=== PATIENT | female | born 1955 | race Caucasian/White ===

== ENCOUNTER 2017-05-06 18:32 | Emergency (ER) | payer MEDICAID ==
[~2017-05-06] VITALS: Ht 165.1 cm; Wt 91.4 kg
[~2017-05-06 18:32] MED LIST: HYDR-882 PO; METH500T97 PO; TEMA15CA PO
[2017-05-06] MEDS ORDERED: ALBUTEROL SULFATE 2.5 MG/3 ML NPPB ONE (19:30)
[2017-05-06 19:34] LABS: HEMATOCRIT 41.3 % (34.6-47.8); HEMOGLOBIN 13.3 g/dL (11.7-16.4); WHITE BLOOD COUNT 15.5 x10^3/uL (3.4-10)
[2017-05-06 19:44] LABS: BLOOD UREA NITROGEN 19 mg/dL (7-18)
[2017-05-06 21:09] VITALS: BP 135/95
== END 2017-05-06 21:12 | disposition home or self-care (01) ==
LOC: ED 21:06
DX: J45.31 Mild persistent asthma with (acute) exacerbation (principal); I49.3 Ventricular premature depolarization
CPT/HCPCS: 36415; 71010; 80048; 82040; 85025; 93005; 94640; 99285; J7512; J7613

== ENCOUNTER 2017-09-05 17:30 | Inpatient (IN) | payer MEDICAID ==
[~2017-09-05] VITALS: Ht 165.1 cm; Wt 91.8 kg
[2017-09-05] MEDS ORDERED: SODIUM CHLORIDE 0.9% 1,000ML IVBOLUS ONE (19:00)
[2017-09-05] MEDS ORDERED: OMNIPAQUE 350 MG/ML, 100ML BOTTLE ONE (19:00)
[2017-09-05] MEDS ORDERED: ONDANSETRON 2MG/ML, 2ML IVPush ONE (19:00)
[2017-09-05] MEDS ORDERED: ONDANSETRON 2MG/ML, 2ML ONE (19:03)
[2017-09-05] MEDS ORDERED: MORPHINE SULFATE 4 MG/ML, 1ML ONE ×2 (19:04→21:04)
[2017-09-05] MEDS: MORPHINE SULFATE 4 MG/ML, 1ML IVPush PRN ×2 (19:08→21:06)
[2017-09-05 19:20] LABS: BASOPHILS # (AUTO) 0.05 x10^3/uL (0-0.1); BASOPHILS % (AUTO) 0 % (0-1); EOSINOPHILS % (AUTO) 1 % (1-7); LYMPHOCYTES # (AUTO) 1.96 x10^3/uL (1-3.4); LYMPHOCYTES % (AUTO) 12 % (22-44); MD NO; MEAN CORPUSCULAR HEMOGLOBIN 27.8 pg (27.0-34.8); MEAN CORPUSCULAR HGB CONC 33.2 g/dL (32.4-35.8); MEAN CORPUSCULAR VOLUME 83.9 fL (80-100); MEAN PLATELET VOLUME 9.6 fL (7.4-10.4); MONOCYTES # (AUTO) 1.22 x10^3/uL (0.2-0.8); MONOCYTES % (AUTO) 8 % (2-9); NEUTROPHILS # (AUTO) 12.46 x10^3/uL (1.8-6.8); NEUTROPHILS % (AUTO) 78 % (42-75); PLATELET COUNT 312 x10^3/uL (130-400); RED BLOOD COUNT 4.95 x10^6/uL (3.82-5.3); RED CELL DISTRIBUTION WIDTH 15.8 % (9.6-15.2)
[2017-09-05 19:21] LABS: CULTURE INDICATED? YES; MICROSCOPIC INDICATED
[2017-09-05 19:31] LABS: ALANINE AMINOTRANSFERASE 55 U/L (12-78); ALBUMIN 3.2 g/dL (3.4-5.0); ANION GAP 7 mmol/L (5-15); CALCIUM 8.4 mg/dL (8.5-10.1); CHLORIDE 104 mmol/L (98-107); CREATININE 0.71 mg/dL (0.55-1.02)
[2017-09-05 19:35] LABS: ALKALINE PHOSPHATASE 133 U/L (45-117); BILIRUBIN,TOTAL 0.5 mg/dL (0.2-1.0); TOTAL PROTEIN 8.1 g/dL (6.4-8.2); TROPONIN I < 0.015 ng/mL (0.000-0.045)
[2017-09-05] MEDS ORDERED: METRONIDAZOLE PMX 500MG/100ML 100 ML IV ONE (21:30)
[2017-09-05] MEDS ORDERED: CIPROFLOXACIN/PMX 400MG/200ML 200 ML IV ONE (21:30)
[2017-09-05] MEDS ORDERED: CIPROFLOXACIN/PMX 400MG/200ML 200 ML ONE (21:34)
[2017-09-05] MEDS ORDERED: MORPHINE SULFATE 4 MG/ML, 1ML IVPush PRN (22:00)
[2017-09-05] MEDS ORDERED: SODIUM CHLORIDE 0.9% 1,000 ML IV ONE (22:00)
[2017-09-05] MEDS ORDERED: ONDANSETRON 2MG/ML, 2ML IVPush PRN ×2 (22:00→23:00)
[2017-09-05] MEDS ORDERED: BISACODYL 10 MG SUPP PR PRN (23:00)
[2017-09-05] MEDS ORDERED: hydrALAzine 20 MG/ML, 1ML IVPush PRN (23:00)
[2017-09-05] MEDS ORDERED: KETOROLAC 30 MG/1 ML IM PRN (23:00)
[2017-09-05 23:30] VITALS: BP 116/73
[2017-09-05] MEDS: SODIUM CHLORIDE 0.9% 1,000 ML IV SCH (23:46)
[2017-09-05] MEDS: morphine SULFATE 10 MG/ML, 1ML IVPush PRN (23:56)
[2017-09-05] MEDS: METRONIDAZOLE PMX 500MG/100ML 100 ML IV SCH (23:56)
[2017-09-06] VITALS: BP 116/73
[2017-09-06] MEDS: morphine SULFATE 10 MG/ML, 1ML IVPush PRN ×4 (04:55→21:36)
[2017-09-06 04:57] VITALS: BP 115/74
[2017-09-06 05:50] LABS: CHLORIDE 107 mmol/L (98-107)
[2017-09-06 05:53] LABS: BASOPHILS # (AUTO) 0.07 x10^3/uL (0-0.1); BASOPHILS % (AUTO) 1 % (0-1); EOSINOPHILS # (AUTO) 0.24 x10^3/uL (0-0.4); EOSINOPHILS % (AUTO) 2 % (1-7); LYMPHOCYTES # (AUTO) 2.68 x10^3/uL (1-3.4); LYMPHOCYTES % (AUTO) 21 % (22-44); MD NO; MEAN CORPUSCULAR HEMOGLOBIN 27.8 pg (27.0-34.8); MEAN CORPUSCULAR HGB CONC 33.1 g/dL (32.4-35.8); MEAN CORPUSCULAR VOLUME 84.1 fL (80-100); MONOCYTES # (AUTO) 0.98 x10^3/uL (0.2-0.8); MONOCYTES % (AUTO) 8 % (2-9); NEUTROPHILS # (AUTO) 8.61 x10^3/uL (1.8-6.8); NEUTROPHILS % (AUTO) 69 % (42-75); PLATELET COUNT 265 x10^3/uL (130-400)
[2017-09-06] MEDS: METRONIDAZOLE PMX 500MG/100ML 100 ML IV SCH ×4 (06:00→23:50)
[2017-09-06 06:04] LABS: ANION GAP 7 mmol/L (5-15); CALCIUM 8.3 mg/dL (8.5-10.1); CREATININE 0.61 mg/dL (0.55-1.02)
[2017-09-06 07:48] VITALS: BP 109/71
[2017-09-06] MEDS ORDERED: CEFTRIAXONE PMX 2GM/50ML 50 ML IV SCH (08:30)
[2017-09-06] MEDS: SODIUM CHLORIDE 0.9% 1,000 ML IV SCH ×2 (09:25→23:51)
[2017-09-06] MEDS: CEFTRIAXONE 2 GM in DEXTROSE 5% 50 ML IV SCH (09:26)
[2017-09-06] MEDS: LACTOBACILLUS 1GM/ PACKET PO SCH ×4 (09:26→20:36)
[2017-09-06] MEDS ORDERED: CIPROFLOXACIN/PMX 400MG/200ML 200 ML IV SCH (10:00)
[2017-09-06] MEDS: PANTOPRAZOLE 40 MG IV IVPush SCH ×2 (12:00→23:50)
[2017-09-06 14:34] VITALS: BP 111/72
[2017-09-06 19:16] VITALS: BP 112/73
[2017-09-06] MEDS: TEMAZEPAM 15 MG CAPSULE PO PRN (21:36)
[2017-09-07 00:25] VITALS: BP 116/71
[2017-09-07] MEDS ORDERED: CEFTRIAXONE 2 GM in DEXTROSE 5% 50 ML IV SCH (05:00)
[2017-09-07 05:23] LABS: BASOPHILS # (AUTO) 0.06 x10^3/uL (0-0.1); BASOPHILS % (AUTO) 1 % (0-1); EOSINOPHILS # (AUTO) 0.35 x10^3/uL (0-0.4); EOSINOPHILS % (AUTO) 4 % (1-7); LYMPHOCYTES % (AUTO) 27 % (22-44); MD NO; MEAN CORPUSCULAR HEMOGLOBIN 27.8 pg (27.0-34.8); MEAN CORPUSCULAR HGB CONC 33.1 g/dL (32.4-35.8); MEAN PLATELET VOLUME 9.5 fL (7.4-10.4); MONOCYTES # (AUTO) 0.67 x10^3/uL (0.2-0.8); MONOCYTES % (AUTO) 7 % (2-9); NEUTROPHILS # (AUTO) 6.41 x10^3/uL (1.8-6.8); NEUTROPHILS % (AUTO) 62 % (42-75); PLATELET COUNT 284 x10^3/uL (130-400); RED BLOOD COUNT 4.39 x10^6/uL (3.82-5.3); RED CELL DISTRIBUTION WIDTH 15.5 % (9.6-15.2)
[2017-09-07 05:28] LABS: ALBUMIN 2.7 g/dL (3.4-5.0); ANION GAP 8 mmol/L (5-15); CALCIUM 8.6 mg/dL (8.5-10.1); CHLORIDE 107 mmol/L (98-107)
[2017-09-07 05:30] LABS: CREATININE 0.67 mg/dL (0.55-1.02)
[2017-09-07] MEDS: METRONIDAZOLE PMX 500MG/100ML 100 ML IV SCH ×3 (06:15→18:24)
[2017-09-07] MEDS: LACTOBACILLUS 1GM/ PACKET PO SCH ×4 (06:16→20:47)
[2017-09-07 07:41] VITALS: BP 126/63
[2017-09-07] MEDS: CEFTRIAXONE 2 GM in DEXTROSE 5% 50 ML IV SCH (09:02)
[2017-09-07] MEDS: CHOLECALCIFEROL 1,000 UNIT TABLET PO SCH (09:02)
[2017-09-07] MEDS: PANTOPRAZOLE 40 MG IV IVPush SCH (12:44)
[2017-09-07] MEDS: SODIUM CHLORIDE 0.9% 1,000 ML IV SCH ×2 (12:44→22:44)
[2017-09-07 14:47] VITALS: BP 101/58
[2017-09-07 14:48] VITALS: BP_SYST 101; BP_SYST 135; BP_DIAS 58; BP_DIAS 77
[2017-09-07] MEDS: PANTOPROZOLE 40MG TABLET PO SCH (17:29)
[2017-09-07 19:13] VITALS: BP 132/87
[2017-09-07] MEDS: morphine SULFATE 10 MG/ML, 1ML IVPush PRN (20:47)
[2017-09-07] MEDS: TEMAZEPAM 15 MG CAPSULE PO PRN (22:44)
[2017-09-08] MEDS: METRONIDAZOLE PMX 500MG/100ML 100 ML IV SCH ×2 (00:24→06:11)
[2017-09-08 01:03] VITALS: BP 99/65
[2017-09-08] MEDS ORDERED: CEFTRIAXONE 2 GM in DEXTROSE 5% 50 ML IV SCH (05:00)
[2017-09-08 05:20] LABS: BASOPHILS # (AUTO) 0.06 x10^3/uL (0-0.1); BASOPHILS % (AUTO) 1 % (0-1); EOSINOPHILS # (AUTO) 0.38 x10^3/uL (0-0.4); EOSINOPHILS % (AUTO) 4 % (1-7); LYMPHOCYTES # (AUTO) 1.97 x10^3/uL (1-3.4); LYMPHOCYTES % (AUTO) 23 % (22-44); MD NO; MEAN CORPUSCULAR HEMOGLOBIN 27.5 pg (27.0-34.8); MEAN CORPUSCULAR HGB CONC 32.9 g/dL (32.4-35.8); MEAN CORPUSCULAR VOLUME 83.7 fL (80-100); MEAN PLATELET VOLUME 9.3 fL (7.4-10.4); MONOCYTES # (AUTO) 0.56 x10^3/uL (0.2-0.8); MONOCYTES % (AUTO) 6 % (2-9); NEUTROPHILS # (AUTO) 5.77 x10^3/uL (1.8-6.8); NEUTROPHILS % (AUTO) 66 % (42-75); PLATELET COUNT 281 x10^3/uL (130-400); RED BLOOD COUNT 4.18 x10^6/uL (3.82-5.3); RED CELL DISTRIBUTION WIDTH 15.5 % (9.6-15.2)
[2017-09-08 05:27] LABS: ALBUMIN 2.5 g/dL (3.4-5.0); ANION GAP 4 mmol/L (5-15); CALCIUM 8.2 mg/dL (8.5-10.1); CHLORIDE 111 mmol/L (98-107); CREATININE 0.59 mg/dL (0.55-1.02)
[2017-09-08] MEDS: LACTOBACILLUS 1GM/ PACKET PO SCH (06:11)
[2017-09-08] MEDS ORDERED: METR500T PO (07:30)
[2017-09-08] MEDS ORDERED: CIPR500T87 PO (07:30)
[2017-09-08] MEDS ORDERED: PANT40TA5 PO (07:30)
[2017-09-08] MEDS ORDERED: CHOL10003 PO (07:30)
[2017-09-08 07:51] VITALS: BP 118/80
[2017-09-08] MEDS: SODIUM CHLORIDE 0.9% 1,000 ML IV SCH (08:00)
[2017-09-08] MEDS: PANTOPROZOLE 40MG TABLET PO SCH (08:12)
[2017-09-08] MEDS: CHOLECALCIFEROL 1,000 UNIT TABLET PO SCH (08:12)
== END 2017-09-08 09:51 | disposition home or self-care (01) | DRG 391 ==
LOC: ED 21:13 → EDIP 22:00 → 4EST 23:06 → DCLOUNGE 09-08 09:34
PROVIDERS: ADMIT Internal Medicine; ATTEND Internal Medicine
DX: K57.32 Diverticulitis of large intestine without perforation or abscess without bleeding (principal); E43 Unspecified severe protein-calorie malnutrition; E55.9 Vitamin D deficiency, unspecified; E66.9 Obesity, unspecified; E78.5 Hyperlipidemia, unspecified; K21.9 Gastro-esophageal reflux disease without esophagitis; K44.9 Diaphragmatic hernia without obstruction or gangrene; Z82.3 Family history of stroke; Z90.710 Acquired absence of both cervix and uterus; D72.829 Elevated white blood cell count, unspecified; Z68.33 Body mass index [BMI] 33.0-33.9, adult
CPT/HCPCS: 36415; 74177; 80048; 80053; 81001; 82040; 82306; 83690; 83735; 84100; 84484; 85025; 87040; 87086; 93005; 96361; 96374; 96375; 96376; J0696; J0744; J2405; Q9967; C9113; J2270; J7030

== ENCOUNTER 2018-03-26 02:41 | Emergency (ER) | payer MEDICAID, OTHER ==
[~2018-03-26] VITALS: Ht 165.1 cm; Wt 91.0 kg
[~2018-03-26 02:41] MED LIST changes: +CHOL10003 PO; +CIPR500T87 PO; +HYDR-3653 PO; -HYDR-882 PO; +METR500T PO; +PANT40TA5 PO
[2018-03-26] MEDS ORDERED: KETOROLAC 30 MG/1 ML ONE (03:15)
[2018-03-26] MEDS ORDERED: KETOROLAC 30 MG/1 ML IM ONE (03:30)
[2018-03-26] MEDS ORDERED: LIDOCAINE-MPF 1%, 5ML ONE (03:51)
[2018-03-26 04:00] VITALS: BP 142/78
[2018-03-26] MEDS ORDERED: TRIAMCINOLONE ACETONIDE 40 MG/ML, 1ML MC ONE (04:00)
[2018-03-26] MEDS ORDERED: LIDOCAINE 1%, 2ML INFIL ONE (04:00)
== END 2018-03-26 04:44 | disposition home or self-care (01) ==
LOC: ED 03:49
DX: M25.512 Pain in left shoulder (principal); Z87.891 Personal history of nicotine dependence
CPT/HCPCS: 20610; 73030; 93005; 96372; 99284; J1885

== ENCOUNTER 2019-07-20 06:00 | Emergency (ER) | payer OTHER ==
[~2019-07-20] VITALS: Ht 165.1 cm; Wt 83.7 kg
[2019-07-20] MEDS ORDERED: SODIUM CHLORIDE FLUSH 10ML SYR IVF ONE (07:00)
[2019-07-20] MEDS ORDERED: SODIUM CHLORIDE 0.9% 1,000ML IVBOLUS ONE (07:00)
[2019-07-20] MEDS ORDERED: ONDANSETRON 2MG/ML, 2ML IVPush ONE (07:00)
[2019-07-20 07:01] LABS: BASOPHILS % (AUTO) 0 % (0-1); EOSINOPHILS # (AUTO) 0.27 x10^3/uL (0-0.4); EOSINOPHILS % (AUTO) 2 % (1-7); LYMPHOCYTES # (AUTO) 1.89 x10^3/uL (1-3.4); LYMPHOCYTES % (AUTO) 14 % (22-44); MD NO; MEAN CORPUSCULAR HEMOGLOBIN 28.7 pg (27.0-34.8); MEAN PLATELET VOLUME 9.7 fL (7.4-10.4); MONOCYTES # (AUTO) 0.72 x10^3/uL (0.2-0.8); MONOCYTES % (AUTO) 5 % (2-9); NEUTROPHILS # (AUTO) 10.61 x10^3/uL (1.8-6.8); NEUTROPHILS % (AUTO) 79 % (42-75); PLATELET COUNT 279 x10^3/uL (130-400); RED BLOOD COUNT 4.94 x10^6/uL (3.82-5.3); RED CELL DISTRIBUTION WIDTH 14.5 % (9.6-15.2)
--- NOTE | 2019-07-20 07:04 | NUR ---
CT PENDING CREATINE.
[2019-07-20 07:13] LABS: ALANINE AMINOTRANSFERASE 25 U/L (12-78); ALBUMIN 3.3 g/dL (3.4-5.0); ANION GAP 10 mmol/L (5-15); CALCIUM 8.8 mg/dL (8.5-10.1); CHLORIDE 107 mmol/L (98-107)
[2019-07-20 07:15] LABS: ALKALINE PHOSPHATASE 123 U/L (45-117); BILIRUBIN,TOTAL 0.6 mg/dL (0.2-1.0); TOTAL PROTEIN 7.9 g/dL (6.4-8.2)
[2019-07-20 07:20] LABS: MICROSCOPIC NOT IND
[2019-07-20] MEDS ORDERED: ONDANSETRON 2MG/ML, 2ML ONE (07:25)
[2019-07-20] MEDS ORDERED: MORPHINE SULFATE 4 MG/ML, 1ML ONE ×2 (07:26→08:28)
[2019-07-20 07:29] LABS: CULTURE INDICATED? NO
[2019-07-20] MEDS: MORPHINE SULFATE 4 MG/ML, 1ML IVPush PRN ×2 (07:34→08:34)
--- NOTE | 2019-07-20 07:35 | NUR ---
PIV STARTED AND PATIENT MEDICATED PER AUG. PT TO CT AT THIS TIME.
[2019-07-20 07:51] VITALS: BP 161/90
[2019-07-20] MEDS ORDERED: ASCO10004 PO (07:53)
[2019-07-20] MEDS ORDERED: OMEP40CA42 PO (07:54)
[2019-07-20] MEDS ORDERED: LACT1CAP43 PO (07:55)
[2019-07-20] MEDS ORDERED: OMNIPAQUE 350 MG/ML, 100ML BOTTLE ONE (07:59)
--- NOTE | 2019-07-20 08:46 | NUR ---
SB[facility] HAND-OFF REPORT GIVEN TO JESSICA ARMSTRONG.
--- NOTE | 2019-07-20 10:06 | NUR ---
Patient given discharge instructions and they have confirmed that they understand the instructions. Patient ambulatory with steady gait.
== END 2019-07-20 10:08 | disposition home or self-care (01) ==
LOC: ED 06:20
DX: K57.32 Diverticulitis of large intestine without perforation or abscess without bleeding (principal); R10.32 Left lower quadrant pain; Z90.710 Acquired absence of both cervix and uterus
CPT/HCPCS: 36415; 71045; 74177; 80053; 81003; 83690; 85025; 93005; 96374; 96375; 96376; 99284; J2270; J2405; J7030; Q9967

== ENCOUNTER 2019-08-23 12:39 | Observation (INO) | payer OTHER ==
[~2019-08-23] VITALS: Ht 165.1 cm; Wt 86.0 kg
[~2019-08-23 12:39] MED LIST changes: +ASCO10004 PO; +LACT1CAP43 PO; +OMEP40CA42 PO
[2019-08-23] MEDS ORDERED: SODIUM CHLORIDE 0.9% 1,000 ML IV ONE (12:46)
[2019-08-23] MEDS ORDERED: SODIUM CHLORIDE 0.9% 1,000ML IVBOLUS ONE (13:00)
[2019-08-23 13:16] LABS: BASOPHILS # (AUTO) 0.06 x10^3/uL (0-0.1); BASOPHILS % (AUTO) 1 % (0-1); EOSINOPHILS % (AUTO) 4 % (1-7); LYMPHOCYTES % (AUTO) 20 % (22-44); MD NO; MEAN CORPUSCULAR HEMOGLOBIN 28.6 pg (27.0-34.8); MEAN CORPUSCULAR HGB CONC 32.6 g/dL (32.4-35.8); MEAN CORPUSCULAR VOLUME 87.8 fL (80-100); MEAN PLATELET VOLUME 9.6 fL (7.4-10.4); MONOCYTES # (AUTO) 0.64 x10^3/uL (0.2-0.8); MONOCYTES % (AUTO) 6 % (2-9); NEUTROPHILS # (AUTO) 8.07 x10^3/uL (1.8-6.8); NEUTROPHILS % (AUTO) 70 % (42-75); PLATELET COUNT 304 x10^3/uL (130-400); RED BLOOD COUNT 4.45 x10^6/uL (3.82-5.3); RED CELL DISTRIBUTION WIDTH 15.3 % (9.6-15.2)
--- NOTE | 2019-08-23 13:17 | NUR ---
Pt here for drug overdose, pt reported taking 12 tinazidine and 12 tenazapam. Pt was a/ox4 on scene but is not oriented here. Per ems report pt called friend and said she was going to take her life who called her son and then he called ems. Pt has pin point pupils and only responds to pain. Pt is still maintaing her airway without interventions. Room air sat remains at 98% o2. Pt on pads as she is bradycardic, pt also connected to monitors. Awaiting further orders.
[2019-08-23 13:24] LABS: ALBUMIN 2.6 g/dL (3.4-5.0); ANION GAP 7 mmol/L (5-15); CALCIUM 8.3 mg/dL (8.5-10.1); CHLORIDE 109 mmol/L (98-107)
[2019-08-23 13:26] LABS: SALICYLATE LEVEL < 1.7 mg/dL (2.8-20.0)
[2019-08-23 13:27] LABS: ALANINE AMINOTRANSFERASE 26 U/L (12-78); ALKALINE PHOSPHATASE 101 U/L (45-117); BILIRUBIN,TOTAL 0.5 mg/dL (0.2-1.0); TOTAL PROTEIN 6.6 g/dL (6.4-8.2)
--- NOTE | 2019-08-23 14:12 | NUR ---
Pt resting in bed, gag reflex test woke up patient, pt able to answer some questions. family at bedside and answered questions for them. Warm blanket provided.
--- NOTE | 2019-08-23 14:24 | NUR ---
Hospital bed requested.
--- NOTE | 2019-08-23 14:39 | NUR ---
Pillow provided for patient
[2019-08-23] MEDS ORDERED: SODIUM CHLORIDE FLUSH 10ML SYR IVF PRN (15:30)
[2019-08-23] MEDS ORDERED: DOCUSATE 100 MG CAPSULE PO PRN (16:00)
[2019-08-23] MEDS ORDERED: ONDANSETRON 2MG/ML, 2ML IVPush PRN (16:00)
[2019-08-23] MEDS ORDERED: ACETAMINOPHEN 325 MG TABLET PO PRN (16:00)
[2019-08-23] MEDS ORDERED: ENOXAPARIN 40 MG/0.4 ML ONE (16:40)
[2019-08-23] MEDS: ENOXAPARIN 40 MG/0.4 ML SQ SCH (16:41)
[2019-08-23] MEDS: SODIUM CHLORIDE 0.9% 1,000 ML IV SCH (16:41)
--- NOTE | 2019-08-23 16:42 | NUR ---
pt medicated per emar.
[2019-08-23 18:26] VITALS: BP 110/62
[2019-08-23] MEDS: IBUPROFEN 600 MG TABLET PO PRN (19:06)
[2019-08-23 22:51] LABS: AMPHETAMINE SCREEN, URINE Negative (Negative); BARBITURATE SCREEN, URINE Negative (Negative); BENZODIAZEPINE SCREEN, URINE Positive (Negative); CANNABINOID SCREEN, URINE Negative (Negative); COCAINE SCREEN, URINE Negative (Negative); METHADONE SCREEN, URINE Negative (Negative); OPIATE SCREEN, URINE Negative (Negative)
[2019-08-24 00:05] VITALS: BP 128/71
[2019-08-24] MEDS: SODIUM CHLORIDE 0.9% 1,000 ML IV SCH ×2 (00:23→08:53)
[2019-08-24] MEDS: IBUPROFEN 600 MG TABLET PO PRN (04:57)
[2019-08-24 05:24] LABS: ANION GAP 7 mmol/L (5-15); CALCIUM 8.4 mg/dL (8.5-10.1); CHLORIDE 110 mmol/L (98-107)
[2019-08-24 05:26] LABS: BASOPHILS # (AUTO) 0.09 x10^3/uL (0-0.1); BASOPHILS % (AUTO) 1 % (0-1); EOSINOPHILS # (AUTO) 0.29 x10^3/uL (0-0.4); EOSINOPHILS % (AUTO) 3 % (1-7); LYMPHOCYTES # (AUTO) 2.14 x10^3/uL (1-3.4); LYMPHOCYTES % (AUTO) 19 % (22-44); MD NO; MEAN CORPUSCULAR HEMOGLOBIN 28.5 pg (27.0-34.8); MEAN CORPUSCULAR HGB CONC 32.7 g/dL (32.4-35.8); MEAN CORPUSCULAR VOLUME 87.3 fL (80-100); MEAN PLATELET VOLUME 9.9 fL (7.4-10.4); MONOCYTES # (AUTO) 0.53 x10^3/uL (0.2-0.8); MONOCYTES % (AUTO) 5 % (2-9); NEUTROPHILS # (AUTO) 7.98 x10^3/uL (1.8-6.8); NEUTROPHILS % (AUTO) 72 % (42-75); PLATELET COUNT 266 x10^3/uL (130-400); RED BLOOD COUNT 4.83 x10^6/uL (3.82-5.3); RED CELL DISTRIBUTION WIDTH 15.4 % (9.6-15.2)
[2019-08-24] MEDS ORDERED: PANTOPRAZOLE 40 MG IV IVPush SCH (07:30)
[2019-08-24 08:15] VITALS: BP 149/90
[2019-08-24 13:07] VITALS: BP 166/99
[2019-08-24] MEDS ORDERED: DULOXETINE 30 MG CAPSULE.DR PO ONE (15:30)
[2019-08-24] MEDS: ENOXAPARIN 40 MG/0.4 ML SQ SCH (15:40)
[2019-08-24] MEDS ORDERED: ACET325T26 PO (15:46)
[2019-08-24] MEDS ORDERED: DULO30CA2 PO (15:46)
[2019-08-24] MEDS ORDERED: IBUP-1222 PO (15:46)
== END 2019-08-24 17:43 | disposition home or self-care (01) ==
LOC: ED 14:30 → EDIP 15:04 → INTOOBSV 15:04 → 5SO 17:38
PROVIDERS: ADMIT Internal Medicine; ATTEND Internal Medicine
DX: T42.8X2A Poisoning by antiparkinsonism drugs and other central muscle-tone depressants, intentional self-harm, initial encounter (principal); T42.4X2A Poisoning by benzodiazepines, intentional self-harm, initial encounter; G92 Toxic encephalopathy; D72.829 Elevated white blood cell count, unspecified; I10 Essential (primary) hypertension; K21.9 Gastro-esophageal reflux disease without esophagitis; M06.9 Rheumatoid arthritis, unspecified; G89.29 Other chronic pain; I65.21 Occlusion and stenosis of right carotid artery; R73.9 Hyperglycemia, unspecified; I45.5 Other specified heart block; F32.9 Major depressive disorder, single episode, unspecified; Z90.710 Acquired absence of both cervix and uterus; Z79.899 Other long term (current) drug therapy; Z87.19 Personal history of other diseases of the digestive system
CPT/HCPCS: 36415; 71045; 80048; 80053; 80307; 84443; 85025; 93005; 96372; 96374; 99291; C9113; G0378; J7030; J1650

== ENCOUNTER 2020-04-21 07:31 | Emergency (ER) | payer BC, MEDICAID, OTHER ==
[~2020-04-21] VITALS: Ht 165.1 cm; Wt 83.0 kg
[~2020-04-21 07:31] MED LIST changes: +ACET325T26 PO; +ASCO100018 PO; -ASCO10004 PO; +DULO30CA2 PO; +IBUP-1222 PO; -PANT40TA5 PO; +PANT40TA6 PO
[2020-04-21 07:34] VITALS: BP 151/100
--- NOTE | 2020-04-21 08:19 | NUR ---
PT C/O RASH TO RIGHT SIDE OF FACE THAT STARTED THURSDAY. TO THE PATIENT IT LOOKED LIKE A BUG BITE THAT STARTED SMALL AND COUNTINUED TO GET BIGGER. PT STATES IT STARTED ITCHING REALLY BAD TODAY. PT STATED IT STARTED HAVING PUS COME OUT SINCE YESTERDAY. PT HAS A HX OF CELLULITIS AND STATES THIS FEELS SIMILAR.
== END 2020-04-21 08:35 | disposition home or self-care (01) ==
LOC: ED 07:59
DX: B02.33 Zoster keratitis (principal); I10 Essential (primary) hypertension; Z90.710 Acquired absence of both cervix and uterus
CPT/HCPCS: 99283

== ENCOUNTER 2020-04-22 10:51 | Emergency (ER) | payer MEDICAID ==
[~2020-04-22] VITALS: Ht 165.1 cm; Wt 83.3 kg
[2020-04-22 10:53] VITALS: BP 122/68
[2020-04-22] MEDS ORDERED: PIPERACILLIN/TAZO/PMX 3.375GM 50 ML ONE (11:19)
--- NOTE | 2020-04-22 11:28 | NUR ---
PIV PLACED. ABX RUNNING PER AUG. PROVIDER STATES NO LABS AT THIS TIME.
[2020-04-22] MEDS ORDERED: HYDROcodone/APAP 5/325 TABLET ONE (11:29)
[2020-04-22] MEDS ORDERED: HYDROcodone/APAP 5/325 TABLET PO ONE (11:30)
[2020-04-22] MEDS ORDERED: SODIUM CHLORIDE FLUSH 10ML SYR IVF ONE (11:30)
[2020-04-22] MEDS ORDERED: PIPERACILLIN/TAZO/PMX 3.375GM 50 ML IV ONE (11:30)
--- NOTE | 2020-04-22 11:48 | NUR ---
IV ABX COMPLETE. PT STATES PAIN IS BETTER.
== END 2020-04-22 12:15 | disposition home or self-care (01) ==
LOC: ED 12:00
DX: L03.211 Cellulitis of face (principal); L01.01 Non-bullous impetigo; I10 Essential (primary) hypertension; Z90.710 Acquired absence of both cervix and uterus
CPT/HCPCS: 96365; 99284; J2543

== ENCOUNTER 2020-04-23 11:04 | Inpatient (IN) | payer MEDICAID ==
[~2020-04-23] VITALS: Ht 165.1 cm; Wt 86.7 kg
--- NOTE | 2020-04-23 13:10 | NUR ---
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
[2020-04-23] MEDS ORDERED: SODIUM CHLORIDE 0.9% 1,000 ML IV ONE (14:30)
[2020-04-23] MEDS ORDERED: PIPERACILLIN/TAZO/PMX 3.375GM 50 ML IVPB ONE (14:30)
[2020-04-23] MEDS ORDERED: ONDANSETRON 2MG/ML, 2ML IVPush ONE (14:30)
[2020-04-23] MEDS ORDERED: SODIUM CHLORIDE FLUSH 10ML SYR IVF ONE (14:30)
[2020-04-23] MEDS ORDERED: HYDROmorphone 1 MG/ML, 1ML INJ IVPush PRN (14:30)
[2020-04-23] MEDS ORDERED: PIPERACILLIN/TAZO/PMX 3.375GM 50 ML ONE (14:43)
[2020-04-23] MEDS ORDERED: HYDROmorphone 1 MG/ML, 1ML INJ ONE (14:44)
[2020-04-23] MEDS ORDERED: ONDANSETRON 2MG/ML, 2ML ONE (14:44)
--- NOTE | 2020-04-23 14:45 | NUR ---
LATE ENTRY: PT CAME IN CO OF REDNESS, PAIN, AND SWELLING TO RIGHT SIDE OF FACE. WAS SEEN THE PREVIOUS 2 DAYS FOR SAME. BUT "ITS GETTING WORSE AND ITS SO PAINFUL". HER FACE IS DRY AND AND A SCAB ON IT THAT IS WEEPING. PT RESTING IN [facility]. WATER PROVIDED. LABS DRAWN
[2020-04-23 15:01] LABS: BASOPHILS % (AUTO) 1 % (0-1); EOSINOPHILS % (AUTO) 4 % (1-7); LYMPHOCYTES % (AUTO) 23 % (22-44); MEAN CORPUSCULAR HEMOGLOBIN 30.2 pg (27.0-34.8); MEAN CORPUSCULAR HGB CONC 33.1 g/dL (32.4-35.8); MEAN PLATELET VOLUME 9.6 fL (7.4-10.4); MONOCYTES % (AUTO) 6 % (2-9); NEUTROPHILS % (AUTO) 66 % (42-75); PLATELET COUNT 323 x10^3/uL (130-400); RED CELL DISTRIBUTION WIDTH 13.3 % (9.6-15.2)
[2020-04-23 15:06] LABS: MD NO
--- NOTE | 2020-04-23 15:06 | NUR ---
BLOOD CULTURES DRAWN PRIOR TO ADM OF ABX
[2020-04-23 15:08] LABS: ALBUMIN 3.6 g/dL (3.4-5.0); ANION GAP 5 mmol/L (5-15); CALCIUM 8.9 mg/dL (8.5-10.1); CHLORIDE 107 mmol/L (98-107); CREATININE 0.86 mg/dL (0.55-1.02)
[2020-04-23] MEDS ORDERED: SODIUM CHLORIDE FLUSH 10ML SYR IVF PRN (16:00)
[2020-04-23] MEDS ORDERED: ONDANSETRON ODT 4 MG PO PRN (16:00)
[2020-04-23] MEDS ORDERED: ONDANSETRON 2MG/ML, 2ML IVPush PRN (16:00)
[2020-04-23] MEDS: ENOXAPARIN 40 MG/0.4 ML SQ SCH (16:00)
[2020-04-23] MEDS ORDERED: VANCOMYCIN PER PHARMACY MC PRN (16:00)
[2020-04-23] MEDS: AMPICILLIN/SULBACTAM 3 GM in SODIUM CHLORIDE 0.9% 100 ML IV SCH ×2 (17:18→23:02)
[2020-04-23] MEDS ORDERED: VANCOMYCIN 2,000 MG in SODIUM CHLORIDE 0.9% 500 ML IV ONE (19:30)
[2020-04-23] MEDS ORDERED: PHARMACOKINETIC CONSULTATION MC ONE ×2 (19:30→21:30)
[2020-04-23] MEDS ORDERED: PHARMACOKINETIC MONITORING MC PRN ×2 (19:30→21:30)
[2020-04-23 20:09] VITALS: BP 103/68
[2020-04-23] MEDS: SODIUM CHLORIDE 0.9% 1,000 ML IV SCH (20:27)
[2020-04-23] MEDS: MORPHINE SULFATE 4 MG/ML, 1ML IVPush PRN (20:54)
[2020-04-23] MEDS: ASCORBIC ACID 500 MG TABLET PO SCH (20:55)
[2020-04-23] MEDS: AQUAPHOR NATURAL HEALING OINT 50GM TP SCH (21:17)
[2020-04-23] MEDS: TEMAZEPAM 15 MG CAPSULE PO PRN (21:39)
[2020-04-24 01:16] VITALS: BP 112/74
[2020-04-24] MEDS: MORPHINE SULFATE 4 MG/ML, 1ML IVPush PRN ×2 (03:37→08:58)
[2020-04-24] MEDS: AMPICILLIN/SULBACTAM 3 GM in SODIUM CHLORIDE 0.9% 100 ML IV SCH ×4 (05:03→23:21)
[2020-04-24] MEDS: OMEPRAZOLE 20 MG CAPSULE.DR PO SCH (05:03)
[2020-04-24 06:06] LABS: BASOPHILS % (AUTO) 1 % (0-1); EOSINOPHILS % (AUTO) 5 % (1-7); LYMPHOCYTES % (AUTO) 27 % (22-44); MEAN CORPUSCULAR HEMOGLOBIN 30.2 pg (27.0-34.8); MEAN CORPUSCULAR HGB CONC 32.6 g/dL (32.4-35.8); MEAN PLATELET VOLUME 9.4 fL (7.4-10.4); MONOCYTES % (AUTO) 8 % (2-9); NEUTROPHILS % (AUTO) 59 % (42-75); PLATELET COUNT 276 x10^3/uL (130-400); RED BLOOD COUNT 4.06 x10^6/uL (3.82-5.3); RED CELL DISTRIBUTION WIDTH 13.7 % (9.6-15.2)
[2020-04-24 06:15] LABS: CHLORIDE 110 mmol/L (98-107)
[2020-04-24 06:18] LABS: MD NO
[2020-04-24 06:30] LABS: ALANINE AMINOTRANSFERASE 22 U/L (12-78); ALBUMIN 2.8 g/dL (3.4-5.0); ALKALINE PHOSPHATASE 83 U/L (45-117); ANION GAP 3 mmol/L (5-15); BILIRUBIN,TOTAL 0.3 mg/dL (0.2-1.0); CALCIUM 8.2 mg/dL (8.5-10.1); CREATININE 0.73 mg/dL (0.55-1.02); TOTAL PROTEIN 6.2 g/dL (6.4-8.2)
[2020-04-24 08:56] VITALS: BP 108/64
[2020-04-24] MEDS: DULOXETINE 30 MG CAPSULE.DR PO SCH (08:57)
[2020-04-24] MEDS: AQUAPHOR NATURAL HEALING OINT 50GM TP SCH ×2 (08:58→19:34)
[2020-04-24] MEDS: VANCOMYCIN 1,600 MG in SODIUM CHLORIDE 0.9% 250 ML IV SCH ×2 (10:04→19:35)
[2020-04-24] MEDS ORDERED: DOCUSATE 100 MG CAPSULE PO PRN (13:30)
[2020-04-24] MEDS ORDERED: POLYETHYLENE GLYCOL 17 GM PACKET PO PRN (13:30)
[2020-04-24] MEDS: SODIUM CHLORIDE 0.9% 1,000 ML IV SCH (14:22)
[2020-04-24] MEDS: HYDROmorphone 1 MG/ML, 1ML INJ IV PRN ×2 (14:22→19:35)
[2020-04-24 14:34] VITALS: BP 117/79
[2020-04-24] MEDS: ENOXAPARIN 40 MG/0.4 ML SQ SCH (15:24)
[2020-04-24] MEDS: MUPIROCIN OINT 2%, 22GM TP SCH ×2 (17:08→19:34)
[2020-04-24 19:11] VITALS: BP 137/86
[2020-04-24] MEDS: ASCORBIC ACID 500 MG TABLET PO SCH (19:34)
[2020-04-24] MEDS: TEMAZEPAM 15 MG CAPSULE PO PRN (21:22)
[2020-04-25] MEDS: SODIUM CHLORIDE 0.9% 1,000 ML IV SCH ×2 (01:20→17:10)
[2020-04-25 01:37] VITALS: BP 109/59
[2020-04-25] MEDS: OMEPRAZOLE 20 MG CAPSULE.DR PO SCH (05:07)
[2020-04-25] MEDS: AMPICILLIN/SULBACTAM 3 GM in SODIUM CHLORIDE 0.9% 100 ML IV SCH ×4 (05:07→23:08)
[2020-04-25 06:30] VITALS: BP 150/86
[2020-04-25 06:32] VITALS: BP 146/90
[2020-04-25] MEDS: HYDROmorphone 1 MG/ML, 1ML INJ IV PRN ×3 (08:41→20:06)
[2020-04-25] MEDS: DULOXETINE 30 MG CAPSULE.DR PO SCH (08:41)
[2020-04-25] MEDS: VANCOMYCIN 1,600 MG in SODIUM CHLORIDE 0.9% 250 ML IV SCH (08:42)
[2020-04-25] MEDS: AQUAPHOR NATURAL HEALING OINT 50GM TP SCH ×2 (08:42→20:07)
[2020-04-25] MEDS: MUPIROCIN OINT 2%, 22GM TP SCH ×3 (08:45→20:07)
[2020-04-25 13:16] VITALS: BP 136/79
[2020-04-25] MEDS: ENOXAPARIN 40 MG/0.4 ML SQ SCH (15:18)
[2020-04-25] MEDS ORDERED: OXYcodone/APAP 5/325MG TABLET PO PRN (17:00)
[2020-04-25] MEDS: ASCORBIC ACID 500 MG TABLET PO SCH (20:06)
[2020-04-25 20:37] VITALS: BP 146/85
[2020-04-25] MEDS: TEMAZEPAM 15 MG CAPSULE PO PRN (21:59)
[2020-04-26 02:09] VITALS: BP 144/90
[2020-04-26] MEDS ORDERED: VANCOMYCIN 1,600 MG in SODIUM CHLORIDE 0.9% 250 ML IV SCH (03:00)
[2020-04-26] MEDS: AMPICILLIN/SULBACTAM 3 GM in SODIUM CHLORIDE 0.9% 100 ML IV SCH ×2 (05:23→11:35)
[2020-04-26] MEDS: OMEPRAZOLE 20 MG CAPSULE.DR PO SCH (05:23)
[2020-04-26 07:28] VITALS: BP 112/75
[2020-04-26] MEDS: MUPIROCIN OINT 2%, 22GM TP SCH (08:52)
[2020-04-26] MEDS: DULOXETINE 30 MG CAPSULE.DR PO SCH (08:53)
[2020-04-26] MEDS: AQUAPHOR NATURAL HEALING OINT 50GM TP SCH (08:53)
[2020-04-26] MEDS: SODIUM CHLORIDE 0.9% 1,000 ML IV SCH (08:55)
[2020-04-26] MEDS ORDERED: AMOX1TAB64 PO (13:13)
[2020-04-26] MEDS ORDERED: DOXY100T PO (13:13)
[2020-04-26] MEDS ORDERED: LACT1CAP35 PO (13:13)
[2020-04-26] MEDS ORDERED: FLUC200T PO (13:13)
[2020-04-26 13:23] VITALS: BP 152/93
== END 2020-04-26 15:07 | disposition home or self-care (01) | DRG 603 ==
LOC: ED 16:11 → EDIP 18:07 → 3N 18:34
PROVIDERS: ADMIT Internal Medicine; ATTEND Internal Medicine
DX: L03.211 Cellulitis of face (principal); G89.4 Chronic pain syndrome; I10 Essential (primary) hypertension; D72.829 Elevated white blood cell count, unspecified; K21.9 Gastro-esophageal reflux disease without esophagitis; L30.9 Dermatitis, unspecified; R00.0 Tachycardia, unspecified; Z82.3 Family history of stroke; Z82.49 Family history of ischemic heart disease and other diseases of the circulatory system; Z87.891 Personal history of nicotine dependence; Z90.710 Acquired absence of both cervix and uterus
CPT/HCPCS: 36415; 80048; 80053; 80202; 82040; 83605; 84443; 85025; 87040; 87070; 87077; 87186; 87205; G0378; J0295; J1170; J2405; J2543; J3370; J2270; J7030; J7040; J7050; Q0177

== ENCOUNTER 2020-06-18 03:34 | Emergency (ER) | payer MEDICAID ==
[~2020-06-18] VITALS: Ht 165.1 cm; Wt 85.2 kg
[~2020-06-18 03:34] MED LIST changes: +AMOX1TAB64 PO; +DOXY100T PO; +FLUC200T PO; +LACT1CAP35 PO
[2020-06-18 03:38] VITALS: BP 156/95
--- NOTE | 2020-06-18 03:55 | NUR ---
THIS IS A 65F THAT COMES IN FOR FACIAL/ NECK SWELLING/ PAIN SINCE THURSDAY. PT STS SHE HAD CELLULITIS OF THE FACE ABOUT TWO MONTHS AGO AND HAS TAKEN SOME OF HER LEFT OVER ABX WITHOUT IMPROVEMENT. PT MANAGING ALL SECRETIONS AND IS ABLE TO SPEAK IN FULL SENTENCES. PT CONNECTED TO MONITORING, VSS
[2020-06-18] MEDS ORDERED: HYDROcodone/APAP 5/325 TABLET ONE (03:59)
[2020-06-18] MEDS ORDERED: DIPHENHYDRAMINE 50 MG CAPSULE ONE (03:59)
[2020-06-18] MEDS ORDERED: DIPHENHYDRAMINE 25 MG CAPSULE PO ONE (04:00)
[2020-06-18] MEDS ORDERED: HYDROcodone/APAP 5/325 TABLET PO ONE (04:00)
--- NOTE | 2020-06-18 04:03 | NUR ---
PT MEDICATED PER AUG VSS, DR BOLES AT BEDSIDE TO ASSESS PT
[2020-06-18 05:09] LABS: BASOPHILS % (AUTO) 1 % (0-1); EOSINOPHILS % (AUTO) 7 % (1-7); LYMPHOCYTES % (AUTO) 30 % (22-44); MEAN CORPUSCULAR HEMOGLOBIN 30.5 pg (27.0-34.8); MEAN CORPUSCULAR HGB CONC 33.4 g/dL (32.4-35.8); MEAN PLATELET VOLUME 8.8 fL (7.4-10.4); MONOCYTES % (AUTO) 8 % (2-9); NEUTROPHILS % (AUTO) 54 % (42-75); PLATELET COUNT 271 x10^3/uL (130-400); RED BLOOD COUNT 4.49 x10^6/uL (3.82-5.3); RED CELL DISTRIBUTION WIDTH 14.4 % (9.6-15.2)
[2020-06-18 05:15] LABS: CHLORIDE 108 mmol/L (98-107)
[2020-06-18] MEDS ORDERED: SULFAMETH./TRIMETHOPRIM DS 800MG/160MG TABLET ONE (05:18)
[2020-06-18] MEDS ORDERED: CEPHALEXIN 500 MG CAPSULE ONE (05:18)
[2020-06-18] MEDS ORDERED: NEOSPORIN OINT. PKT 1 PACKET ONE (05:19)
[2020-06-18 05:21] LABS: ANION GAP 5 mmol/L (5-15); CREATININE 0.65 mg/dL (0.55-1.02)
--- NOTE | 2020-06-18 05:27 | NUR ---
PT MEDICATED PER AUG, ALSO PROVIDED BACITRACIN FOR APPLICATION TO AREAS AT THIS TIME
[2020-06-18] MEDS ORDERED: BACITRACIN OINT 500U/GM, 28GM EXT ONE (05:30)
[2020-06-18] MEDS ORDERED: SULFAMETH./TRIMETHOPRIM DS 800MG/160MG TABLET PO ONE (05:30)
[2020-06-18] MEDS ORDERED: CEPHALEXIN 500 MG CAPSULE PO ONE (05:30)
[2020-06-18 05:45] LABS: MD SCAN
--- NOTE | 2020-06-18 05:52 | NUR ---
Patient/Caregiver given discharge instructions and they have confirmed that they understand the instructions. Patient ambulatory with steady gait.
== END 2020-06-18 05:53 | disposition home or self-care (01) ==
LOC: ED 05:33
DX: L03.211 Cellulitis of face (principal); R21 Rash and other nonspecific skin eruption; I10 Essential (primary) hypertension
CPT/HCPCS: 36415; 80048; 85025; 99284; Q0163

== ENCOUNTER → 2020-10-18 | Outpatient (CLI) | payer MEDICAID | END | disposition home or self-care (01) | LOC: RAD 17:13 | PROVIDERS: ATTEND Nurse Practitioner | DX: R22.42 Localized swelling, mass and lump, left lower limb (principal) ==